=== PATIENT | female | born 1960 | race Caucasian/White ===

== ENCOUNTER → 2017-07-10 | Outpatient (CLI) | payer BC ==
--- NOTE | 2017-07-11 15:37 | MAM ---
EXAM DESCRIPTION: 3D Screening BILATERAL : Digital Mammography. CLINICAL HISTORY: 57 years Female SCREENING . No complaints. No family history of breast cancer. Postmenopausal. No HRT. COMPARISON: 2-D digital screening bilateral studies 05/29/2016 and 11/27/2013. Report from prior examination also reviewed. TECHNIQUE: Bilateral CC and MLO projection full-field images, 3-D tomosynthesis digital mammographic technique. Also bilateral synthesized CC/ MLO full-field images. CAD not utilized. FINDINGS: The breast parenchymal density pattern is: Scattered areas of fibroglandular density. No skin thickening or nipple retraction bilateral solitary microcalcifications. Right breast axillary lymph nodes. No focal, stellate mass or density, focal asymmetry , and no suspicious microcalcifications bilaterally. Stable mammograms compared to prior studies, taking into account differences in mammographic technique IMPRESSION: BI-RADS CATEGORY: 2 - BENIGN FINDINGS. FOLLOW UP: Routine digital bilateral screening, one year interval from June 2017. Written communication explaining the IMPRESSION and follow-up, will be mailed to the patient and referring health care provider. According to the [employer], yearly mammograms are recommended starting at age 40 and continuing as long as a woman is in good health. Any breast change noted on a breast self-exam should be reported promptly to the patient's healthcare provider. Breast MRI is recommended for women with an approximately 20-25% or greater lifetime risk of breast cancer, including women with a strong family history of breast or ovarian cancer and women who have been treated for Hodgkin's disease. A negative mammographic report should not delay tissue diagnosis in patients with significant clinical history or physical findings. Extremely dense breast tissue limits the sensitivity of digital mammography. Electronically signed by: Chip Jean MD 07/11/2017 3:36 PM CDT
== END | disposition home or self-care (01) ==
LOC: MAMMO 08:39
PROVIDERS: ATTEND Family Medicine
DX: Z12.31 Encounter for screening mammogram for malignant neoplasm of breast (principal)
CPT/HCPCS: 77063; G0202

== ENCOUNTER → 2017-08-02 | Outpatient (CLI) | payer BC | END | disposition home or self-care (01) | LOC: GMAM 08:12 | PROVIDERS: ATTEND Family Medicine | DX: Z00.00 Encounter for general adult medical examination without abnormal findings (principal); E55.9 Vitamin D deficiency, unspecified; R31.21 Asymptomatic microscopic hematuria ==

== ENCOUNTER → 2017-12-31 | Outpatient (CLI) | payer SELFPAY | LOC: GMAM 17:33 | PROVIDERS: ATTEND Family Medicine | DX: R29.898 Other symptoms and signs involving the musculoskeletal system (principal) ==

== ENCOUNTER → 2018-01-02 | Outpatient (CLI) | payer BC, OTHER ==
--- NOTE | 2018-01-02 20:19 | MRI ---
MRI right shoulder without contrast INDICATION: Shoulder pain x2 months limited range of motion localized pain TECHNIQUE: Noncontrast MR imaging right shoulder FINDINGS: Minimal subscapularis tendinosis without rupture or retraction. No bicep rupture or dislocation. Mild AC joint osteoarthrosis. There is a nondisplaced chronic appearing superior labral tear with tiny para labral cyst. There is also tendinopathy of the distal supraspinatus and infraspinatus with interstitial and bursal surface partial tear at the supraspinatus insertion slightly greater than 50% partial-thickness. Mild subacromial and subdeltoid bursitis. Tendinopathy distal infraspinatus. There is reactive edema at the supraspinatus insertion and mild cystic change posterior lateral humerus. There is a low signal area at the insertion of the supraspinatus question mild hydroxyapatite deposition as well. There is an os acromiale. Generalized grade 1 marbling of the rotator cuff muscle bellies up to grade 2 in the teres minor. There is minimal interstitial delamination the infraspinatus on the sagittal fat suppressed images as well. IMPRESSION: Os acromiale with mild edema Mild AC joint osteoarthrosis Superior labral tear nondisplaced with small para labral cyst at the base of the posterior superior labrum Insertional partial tear supraspinatus structurally significant with bursal surface extension and probable adjacent mild hydroxyapatite deposition with adjacent mild bursitis with minimal interstitial extension into the infraspinatus Mild subscapularis tendinosis without rupture or retraction Electronically signed by: Vinay Ha MD 01/02/2018 8:17 PM CDT
== END ==
LOC: MRI 07:02
PROVIDERS: ATTEND Family Medicine
DX: M25.571 Pain in right ankle and joints of right foot (principal); M25.511 Pain in right shoulder; M19.011 Primary osteoarthritis, right shoulder; M75.101 Unspecified rotator cuff tear or rupture of right shoulder, not specified as traumatic

== ENCOUNTER → 2018-11-28 | Outpatient (CLI) | payer BC ==
--- NOTE | 2018-11-28 17:57 | MAM ---
EXAM DESCRIPTION: 3D Screening BILATERAL : Digital Mammography. CLINICAL HISTORY: 58 years Female ANNUAL SCREENING . No complaints. No personal or family history of breast cancer. Childbirth. Postmenopausal 15 years. No HRT. Lifetime risk of developing breast cancer (Tyrer-Cuzick model)(%): 6.6. COMPARISON: Bilateral screening digital breast tomosynthesis 07/10/2017. No prior reports available. TECHNIQUE: Bilateral CC and MLO projection full-field images, digital tomosynthesis mammographic technique. Bilateral digital 2-D full-field MLO images. CAD not available for tomosynthesis or 2-D images. FINDINGS: The breast parenchymal density pattern is: Scattered areas of fibroglandular density. No skin thickening or nipple retraction. Bilateral vascular calcifications. Bilateral axillary lymph nodes. Bilateral solitary microcalcifications. No new focal, stellate mass or density, focal asymmetry , and no suspicious microcalcifications bilaterally. Stable mammograms compared to prior study. IMPRESSION: Benign exam. BIRAD CATEGORY: 2 BENIGN FINDINGS. RECOMMENDATIONS: FOLLOW UP: Routine digital bilateral mammographic screening, one year interval from November 2018. Written communication explaining the IMPRESSION and follow-up, will be mailed to the patient and referring health care provider. According to the [employer], yearly mammograms are recommended starting at age 40 and continuing as long as a woman is in good health. Any breast change noted on a breast self-exam should be reported promptly to the patient's healthcare provider. Breast MRI is recommended for women with an approximately 20-25% or greater lifetime risk of breast cancer, including women with a strong family history of breast or ovarian cancer and women who have been treated for Hodgkin's disease. A negative mammographic report should not delay tissue diagnosis in patients with significant clinical history or physical findings. Extremely dense breast tissue limits the sensitivity of digital mammography. Electronically signed by: Chip Jean MD 11/28/2018 5:54 PM CDT
== END ==
LOC: MAMMO 08:55
PROVIDERS: ATTEND Family Medicine
DX: Z12.31 Encounter for screening mammogram for malignant neoplasm of breast (principal)

== ENCOUNTER → 2018-12-04 | Outpatient (CLI) | payer BC | LOC: GMAM 15:13 | PROVIDERS: ATTEND Family Medicine | DX: Z01.419 Encounter for gynecological examination (general) (routine) without abnormal findings (principal) ==

== ENCOUNTER 2019-04-16 05:40 | Day surgery (SDC) | payer BC, OTHER ==
[2019-04-16] MEDS: SODIUM CHLORIDE 0.9% 1000ML 1,000 ML ONE (08:00)
[2019-04-16 09:07] VITALS: O2SAT 100
--- NOTE | 2019-04-16 09:19 | OP ---
DATE OF PROCEDURE: 04/16/19 PREOPERATIVE DIAGNOSIS: 1. Colorectal cancer screening. POSTOPERATIVE DIAGNOSIS: 1. Colonic polyp. 2. Colonic diverticulosis. 3. Internal hemorrhoids. PROCEDURE: 1. Colonoscopy with polypectomy. SURGEON: Juliano Smith MD ANESTHESIA: Monitored anesthesia care. ESTIMATED BLOOD LOSS: Less than 5 mL. COMPLICATIONS: None. PROCEDURE: The patient was placed in the left lateral decubitus position. A time-out was performed. After deep sedation was achieved, the Olympus adult colonoscope was inserted through anus, into the rectum and advanced to the cecum under direct visualization. The cecum was identified by the terminal ileum, the ileocecal valve and the appendiceal orifice. Photodocumentation of these locations was performed. The patients bowel preparation was good. The endoscope was then progressively withdrawn and the total colonic lumen evaluated. Retroflexion was performed in the rectum. The endoscope was then withdrawn and the procedure terminated. The patient tolerated the procedure well with no immediate complications. FINDINGS: 1. One sessile polyp was found in the sigmoid colon. This polyp measured 4 mm, was removed with the cold snare and retrieved for pathology. 2. Moderate to severe colonic diverticulosis was found, most prominent in the sigmoid colon, but also present in the descending and transverse colon. There was no evidence of bleeding or diverticulitis. 3. Grade 2 non-bleeding internal hemorrhoids were seen upon retroflexion in the rectum. IMPRESSION: 1. Sigmoid colon polyp, removed. 2. Left sided diverticulosis. 3. Internal hemorrhoids. RECOMMENDATIONS: 1. Okay to discharge home once the patient meets discharge criteria. 2. Resume prior diet. 3. Resume home medications. 4. Repeat colonoscopy in 5 to 10 years based on polyp pathology results. 5. Return to referring physician as previously scheduled. #[id number] MTDD
[2019-04-16 09:52] VITALS: BP 144/76; TEMP 100
[2019-04-16] MEDS ORDERED: LIDOCAINE 1% 10 ML VIAL INJ ONE (10:00)
[2019-04-16] MEDS ORDERED: PROPOFOL 200 MG/20 ML VIAL IV ONE (10:00)
== END 2019-04-16 09:40 | disposition home or self-care (01) ==
LOC: AMB 05:40
PROVIDERS: ATTEND Internal Medicine Gastroenterology
DX: Z12.11 Encounter for screening for malignant neoplasm of colon (principal); K63.5 Polyp of colon; K57.30 Diverticulosis of large intestine without perforation or abscess without bleeding; K64.1 Second degree hemorrhoids
CPT/HCPCS: 00812; 45385; J3490; J7030

== ENCOUNTER → 2020-01-06 | Outpatient (CLI) | payer BC | LOC: GMAM 11:40 | PROVIDERS: ATTEND Family Medicine | DX: E55.9 Vitamin D deficiency, unspecified (principal); I10 Essential (primary) hypertension ==

== ENCOUNTER → 2020-04-14 | Outpatient (CLI) | payer BC ==
--- NOTE | 2020-04-20 14:59 | MAM ---
EXAM DESCRIPTION: 3D Screening BILATERAL : Digital Mammography. CLINICAL HISTORY: 60 years Female SCREEN . No complaints. Remote family history of breast cancer. Menarche age 11. Childbirth age 21. Menopause age 51. No HRT. Lifetime risk of developing breast cancer (Tyrer-Cuzick model)(%): 6.2. COMPARISON: Bilateral screening digital breast tomosynthesis November 2018 and June 2017. TECHNIQUE: Bilateral CC and MLO projection full-field images, digital tomosynthesis mammographic technique. Bilateral digital 2-D full-field MLO images. CAD available for 2-D images. FINDINGS: The breast parenchymal density pattern is: Scattered areas of fibroglandular density. No skin thickening or nipple retraction. Axillary lymph nodes. Vascular calcifications. Solitary microcalcifications. Stable bilateral small nodules. No new focal, stellate mass or density, focal asymmetry , and no suspicious microcalcifications bilaterally. Stable mammograms compared to prior study. IMPRESSION: Benign exam. BIRAD CATEGORY: 2 BENIGN FINDINGS. RECOMMENDATIONS: FOLLOW UP: Routine digital bilateral mammographic screening, one year interval from March 2020. Written communication explaining the IMPRESSION and follow-up, will be mailed to the patient and referring health care provider. According to the [employer], yearly mammograms are recommended starting at age 40 and continuing as long as a woman is in good health. Any breast change noted on a breast self-exam should be reported promptly to the patient's healthcare provider. Breast MRI is recommended for women with an approximately 20-25% or greater lifetime risk of breast cancer, including women with a strong family history of breast or ovarian cancer and women who have been treated for Hodgkin's disease. A negative mammographic report should not delay tissue diagnosis in patients with significant clinical history or physical findings. Extremely dense breast tissue limits the sensitivity of digital mammography. Electronically signed by: Chip Jean MD 04/20/2020 2:57 PM CDT
== END ==
LOC: MAMMO 14:41
PROVIDERS: ATTEND Family Medicine
DX: Z12.31 Encounter for screening mammogram for malignant neoplasm of breast (principal)

== ENCOUNTER → 2020-09-01 | Outpatient (CLI) | payer BC | LOC: GMAM 16:36 | PROVIDERS: ATTEND Family Medicine | DX: I10 Essential (primary) hypertension (principal); E55.9 Vitamin D deficiency, unspecified; E78.2 Mixed hyperlipidemia ==